=== PATIENT | male | born 1950 | race Caucasian/White ===

== ENCOUNTER 2018-07-13 16:27 | Inpatient (IN) | payer MEDICARE, OTHER | END 2018-07-29 17:40 | disposition home or self-care (01) | LOC: PCU 3S 07-24 21:00 → ER 16:27 → CICU 2S 07-14 03:56 → PCU 3S 07-20 12:44 → ED HOLD 07-14 03:56 → CICU 2S 07-14 04:33 → ED HOLD 21:15 | PROC: 5A1955Z Respiratory Ventilation, Greater than 96 Consecutive Hours (ICD-10-PCS; principal; ~2018-07-13) | PROC: 0BH17EZ Insertion of Endotracheal Airway into Trachea, Via Natural or Artificial Opening (ICD-10-PCS; ~2018-07-13) | DX: A41.9 Sepsis, unspecified organism (principal); J96.00 Acute respiratory failure, unspecified whether with hypoxia or hypercapnia; T88.3XXA Malignant hyperthermia due to anesthesia, initial encounter; K72.90 Hepatic failure, unspecified without coma ==